=== PATIENT | male | born 1980 | race Hispanic/Latino ===

== ENCOUNTER 2017-08-19 07:47 | Inpatient (IN) | payer BC ==
[~2017-08-19] VITALS: Ht 177.8 cm; Wt 88.0 kg
[2017-08-19] MEDS ORDERED: ONDANSETRON HCL INJ 2 MG/ML VIAL IV STA (08:07)
[2017-08-19] MEDS ORDERED: LIDOCAINE VISC 2% SOLN 15 ML UDC PO ONE (08:15)
[2017-08-19] MEDS ORDERED: MAGNESIUM/ALUMINUM/SIMETHICONE 30 ML UDC PO ONE (08:15)
[2017-08-19] MEDS ORDERED: SODIUM CHLORIDE 0.9% 1000ML 1,000 ML IV ONE (08:15)
[2017-08-19 08:26] LABS: BASOPHILS % 0.1 % (0.0-1.0); HEMATOCRIT 43.7 % (38.2-49.6); LYMPHOCYTES # (AUTO) 1.8 (1.0-3.2); LYMPHOCYTES % 8.6 % (18.0-39.1); MEAN CORPUSCULAR HEMOGLOBIN 28.2 pg (28-32); MEAN CORPUSCULAR HGB CONC 34.3 g/dL (31-35); MEAN CORPUSCULAR VOLUME 82.1 fL (81-99); MONOCYTES # (AUTO) 0.7 (0.2-0.8); MONOCYTES % 3.4 % (4.4-11.3); NEUTROPHILS # (AUTO) 18.4 (2.1-6.9); NEUTROPHILS % 87.5 % (38.7-80.0); PLATELET COUNT 234 x10e3/uL (140-360); RED BLOOD COUNT 5.32 x10e6/uL (4.3-5.7); RED CELL DISTRIBUTION WIDTH 14.4 % (11.7-14.4)
[2017-08-19 08:48] LABS: ALANINE AMINOTRANSFERASE 119 IU/L (0-55); ALBUMIN 4.4 g/dL (3.5-5.0); ALKALINE PHOSPHATASE 108 IU/L (40-150); ANION GAP 18.6 mmol/L (8-16); BLOOD UREA NITROGEN 17 mg/dL (7-26); BUN/CREATININE RATIO 16 (6-25); CALCIUM 9.9 mg/dL (8.4-10.2); CARBON DIOXIDE 20 mmol/L (22-29); CHLORIDE 102 mmol/L (98-107); CREATININE, SERUM 1.09 mg/dL (0.72-1.25); EST GLOMERULAR FILTRATION RATE > 60 ML/MIN (60-); GLUCOSE 148 mg/dL (74-118); LIPASE 624 U/L (8-78); POTASSIUM 3.6 mmol/L (3.5-5.1); SODIUM 137 mmol/L (136-145)
--- NOTE | 2017-08-19 09:44 | Diagnostic Imaging Report ---
PROCEDURE:LIMITED ABDOMINAL ULTRASOUND COMPARISON:None. INDICATIONS:RUQ Pain FINDINGS: Liver: 14.9 cm. Normal hepatic parenchymal echogenicity. No focal mass. Main portal vein: 1.1 cm. Hepatopedal flow. Gallbladder: Multiple gallstones are present. Gallbladder wall thickening. No pericholecystic fluid. Common Bile Duct: 9.0 mm. No echogenic filling defect. Sonographic Nick's sign: Negative. Right kidney: 10.3 cm. No solid or cystic mass, echogenic calculi, or hydronephrosis. Normal parenchymal echogenicity. The pancreas, inferior vena cava, and aorta were insufficiently visualized for comment secondary to overlying bowel gas. Ascites: None. CONCLUSION: 1. Cholelithiasis with gallbladder wall thickening and negative sonographic Nick's sign. The findings are equivocal for acute cholecystitis. 2. Prominent common bile duct, without sonographic evidence of choledocholithiasis. Correlate with laboratory values for the need of MRCP. Dictated by: Neftali Krueger M.D. on 08/19/2017 at 9:52 Electronically approved by: Neftali Krueger M.D. on 08/19/2017 at 9:52
[2017-08-19] MEDS ORDERED: PIPER-TAZ 3.375 GM 50 ML IV ONE (10:00)
[2017-08-19] MEDS: MORPHINE SULFATE 2 MG/ML SYR IV PRN ×3 (12:27→23:54)
[2017-08-19] MEDS: ONDANSETRON HCL INJ 2 MG/ML VIAL IV PRN ×3 (12:27→23:54)
[2017-08-19] MEDS: SODIUM CHLORIDE 0.9% 1000ML 1,000 ML IV SCH ×2 (12:30→20:00)
[2017-08-19] MEDS ORDERED: PIPER-TAZ 3.375 GM/50 ML BAG IV SCH (14:00)
--- NOTE | 2017-08-19 15:37 | Consultation ---
DATE OF CONSULTATION: August 19, 2017 This 37-year-old presented to the hospital because of 2 to 3 month history of abdominal pain, which is worse after meals. Mainly it is in the epigastric and right upper quadrant area along with some nausea. The pain seems to be increasing in intensity over the last 2 weeks or so, then he had some vomiting. His workup revealed that he has white count of 20,000 along with elevated liver function tests. AST was 44, ALT 199. He was found to have pancreatitis with lipase of 624. His ultrasound shows evidence of gallstones with bile duct of 9 mm. His other medical problems are grossly unremarkable. ALLERGIES: NONE. SOCIAL HISTORY: He drinks alcohol occasionally. FAMILY HISTORY: Noncontributory. REVIEW OF SYSTEMS: Denies any chest pain or shortness of breath. Denies any dysphagia or odynophagia. Denies any dysuria or hematuria or any kind of syncopal episode. PHYSICAL EXAMINATION GENERAL: Awake, alert, appears to be stable, not in acute distress at this point. VITAL SIGNS: Afebrile currently. HEAD, EYES, EARS, NOSE AND THROAT: Normocephalic and atraumatic. Sclerae are anicteric. NECK: Supple. CARDIAC: Heart sounds are regular. LUNGS: Clear. ABDOMEN: Soft. There is some tenderness in the epigastric and right upper quadrant area. There is no rebound or mass. EXTREMITIES: No clubbing. LABORATORY VALUES: AST 44, ALT 119, amylase 585, lipase 624. WBC 20.9. Hemoglobin is normal. Ultrasound shows gallstones with bile duct of 9 mm. IMPRESSION: Gallstone pancreatitis. Patient has elevated liver function tests and also dilated bile duct. Possibility of common bile duct stones. RECOMMENDATIONS: To keep n.p.o. as well as IV hydration and pain control. Follow labs and clinically. I will obtain an MRCP. Depending on the MRCP results, the patient may need to have an ERCP. He will eventually need to have a cholecystectomy after pancreatitis is resolved. This has been discussed with him as well as his in length and in detail. Job#: [id number] cc:MD CRUZ VARELA MD
--- NOTE | 2017-08-19 16:40 | Diagnostic Imaging Report ---
EXAM: MRI MRCP [facility] DATE: 08/19/2017 2:43 PM INDICATION: Dilated common bile duct seen on ultrasound. COMPARISON: Abdominal ultrasound performed on the same date. TECHNIQUE: Multi planar, multi sequential MRCP images were obtained without and with administration of 18 cc of MultiHance. FINDINGS: Multiple gallstones, the largest measuring 2.4 cm in the gallbladder neck. The common bile duct is distended up to 1.3 cm. There are multiple subcentimeter filling defects within distal common bile duct. Within the limitations of the exam, the liver, spleen and adrenal glands are unremarkable. Bowel loops are unremarkable. No evidence of bowel obstruction. Normal appendix. Small amount of retroperitoneal fluid, surrounding the pancreas. No upper abdominal free fluid or lymphadenopathy. The soft tissues and bones are unremarkable. IMPRESSION: Mild retroperitoneal/peripancreatic edema, suspicious for pancreatitis. Please correlate with lab values. Cholelithiasis without evidence of cholecystitis. Dilated common bile duct with distal common bile duct subcentimeter calculi (choledocholithiasis). Signed by: Dr. Tim Barth MD on 08/19/2017 4:36 PM
[2017-08-19] MEDS: PIPER-TAZ 3.375 GM 50 ML IV SCH (18:00)
--- NOTE | 2017-08-19 20:51 | Consultation ---
DATE OF CONSULTATION: August 19, 2017 REASON FOR CONSULTATION: Gallstone pancreatitis. The patient is a 37-year-old male with several week history of on and off upper abdominal pain that got worse which is the reason why he came to the hospital. While in the emergency room, the patient had a workup that revealed gallstones by ultrasound. He had some mild elevation of transaminases with some mild elevation of the lipase and amylase. This prompted ERCP which revealed choledocholithiasis. The common bile duct was 9 mm. PAST MEDICAL HISTORY: Unremarkable. No previous surgeries. PHYSICAL EXAMINATION GENERAL: A 37-year-old male who complains of abdominal pain. He is in no acute distress. HEENT: Unremarkable. LUNGS: Clear. HEART: Regular rhythm. ABDOMEN: Diffusely tender. The labs and x-rays as previously stated. ASSESSMENT: Gallstone pancreatitis, choledocholithiasis. PLAN: Proceed with ERCP as per Dr. Culp once he has been evaluated and undergone ERCP then we will proceed with surgery. Job#: [id number]
[2017-08-20] MEDS: PIPER-TAZ 3.375 GM 50 ML IV SCH ×3 (03:00→16:55)
[2017-08-20] MEDS: ONDANSETRON HCL INJ 2 MG/ML VIAL IV PRN ×5 (04:00→21:06)
[2017-08-20] MEDS: MORPHINE SULFATE 2 MG/ML SYR IV PRN (04:00)
[2017-08-20] MEDS: SODIUM CHLORIDE 0.9% 1000ML 1,000 ML IV SCH ×3 (04:42→19:52)
[2017-08-20 06:45] LABS: HEMATOCRIT 40.2 % (38.2-49.6); HEMOGLOBIN 13.4 g/dL (14.0-18.0); MEAN CORPUSCULAR HEMOGLOBIN 28.2 pg (28-32); MEAN CORPUSCULAR HGB CONC 33.3 g/dL (31-35); MEAN CORPUSCULAR VOLUME 84.6 fL (81-99); PLATELET COUNT 202 x10e3/uL (140-360); RED BLOOD COUNT 4.75 x10e6/uL (4.3-5.7); RED CELL DISTRIBUTION WIDTH 14.6 % (11.7-14.4)
[2017-08-20] MEDS ORDERED: HYDROMORPHONE 1MG/1ML INJ IV PRN (07:15)
[2017-08-20 07:18] LABS: ALANINE AMINOTRANSFERASE 131 IU/L (0-55); ALBUMIN 3.7 g/dL (3.5-5.0); ALBUMIN/GLOBULIN RATIO 0.9 (0.8-2.0); ALKALINE PHOSPHATASE 92 IU/L (40-150); ANION GAP 15.7 mmol/L (8-16); BLOOD UREA NITROGEN 14 mg/dL (7-26); BUN/CREATININE RATIO 15 (6-25); CALCIUM 9.3 mg/dL (8.4-10.2); CARBON DIOXIDE 22 mmol/L (22-29); CHLORIDE 106 mmol/L (98-107); CREATININE, SERUM 0.91 mg/dL (0.72-1.25); EST GLOMERULAR FILTRATION RATE > 60 ML/MIN (60-); GLUCOSE 113 mg/dL (74-118); LIPASE 714 U/L (8-78); POTASSIUM 3.7 mmol/L (3.5-5.1); SODIUM 140 mmol/L (136-145)
[2017-08-20] MEDS: HYDROMORPHONE 2MG/ML INJ IV PRN ×4 (07:24→20:59)
[2017-08-20 08:19] LABS: LYMPHOCYTES % (MANUAL) 13 % (19-48); MONOCYTES % (MANUAL) 5 % (3.4-9.0); NEUTROPHILS % (MANUAL) 80 % (40-74)
[2017-08-20 08:20] LABS: ANISOCYTOSIS SLIGHT; PLATELET ESTIMATE ADEQUATE; PLATELET MORPHOLOGY COMMENT FEW LARGE; RBC MORPHOLOGY COMMENT NORMAL
--- NOTE | 2017-08-20 10:44 | Progress Note ---
DATE: August 20, 2017 Mr. Hernandez is a 37-year-old man with no prior medical history, who started 2 or 3 months ago having epigastric and right upper quadrant pain on and off. The pain got worse, and he decided to come to the emergency room. He was found to have elevated lipase and gallstones with acute cholecystitis and choledocholithiasis. PHYSICAL EXAMINATION GENERAL: Today, he is awake and alert. He is still in pain. VITALS: Temperature was like 99. HEART: Regular rate. LUNGS: Clear to auscultation. ABDOMEN: Tender. LABS: On the blood work, potassium is 3.7, creatinine 0.91, glucose 113, white count 21.8, hematocrit 40.2, lipase 714. ASSESSMENT AND PLAN 1. Acute cholecystitis. 2. Choledocholithiasis. 3. Acute pancreatitis. 4. Leukocytosis. The plan at the present time is to continue IV antibiotics. Continue to monitor white count. Continue to monitor lipase. The patient is n.p.o. He was seen by GI. He is going to go for ERCP. After the ERCP, he will have a cholecystectomy. All this was discussed with the patient and family at bedside and with Dr. Reese. All questions were answered to their satisfaction. Job#: [id number]
--- NOTE | 2017-08-20 11:07 | Progress Note ---
DATE: The patient is afebrile. Vital signs are stable. The patient is seen in the emergency room, where he has been all night. He is still awaiting a hospital bed. He is awake and alert. Still complains of abdominal pain but feels somewhat better today. No vomiting. Physical examination reveals a nondistended abdomen with diffuse tenderness, no rebound. Laboratories today reveal an increase in the bilirubin to 4.6 from 0.8. Lipase is 714. White count is 21,000. Normal platelet count. ASSESSMENT 1. Gallstones pancreatitis. 2. Choledocholithiasis. PLAN: Continue intravenous antibiotics and hydration. Preoperative ERCP as per Dr. Culp. Will follow up the patient. Job#: [id number]
[2017-08-20 15:10] VITALS: BP 137/62
[2017-08-20 15:14] VITALS: BP 137/62
[2017-08-20 18:13] VITALS: BP 144/77
[2017-08-20 23:51] VITALS: BP 148/82
[2017-08-21] MEDS: HYDROMORPHONE 2MG/ML INJ IV PRN ×5 (01:00→23:04)
[2017-08-21] MEDS: ONDANSETRON HCL INJ 2 MG/ML VIAL IV PRN ×4 (01:00→23:05)
[2017-08-21] MEDS: PIPER-TAZ 3.375 GM 50 ML IV SCH ×3 (01:44→18:15)
[2017-08-21] MEDS: SODIUM CHLORIDE 0.9% 1000ML 1,000 ML IV SCH ×3 (01:44→18:15)
[2017-08-21 04:00] VITALS: BP 155/83
[2017-08-21 05:19] LABS: BASOPHILS % 0.2 % (0.0-1.0); EOSINOPHILS # (AUTO) 0.1 (0.0-0.4); EOSINOPHILS % 0.2 % (0.0-6.0); HEMATOCRIT 37.4 % (38.2-49.6); HEMOGLOBIN 12.5 g/dL (14.0-18.0); LYMPHOCYTES % 7.7 % (18.0-39.1); MEAN CORPUSCULAR HEMOGLOBIN 28.2 pg (28-32); MEAN CORPUSCULAR HGB CONC 33.4 g/dL (31-35); MEAN CORPUSCULAR VOLUME 84.4 fL (81-99); MONOCYTES # (AUTO) 1.6 (0.2-0.8); MONOCYTES % 6.2 % (4.4-11.3); NEUTROPHILS # (AUTO) 22.4 (2.1-6.9); NEUTROPHILS % 85.1 % (38.7-80.0); PLATELET COUNT 190 x10e3/uL (140-360); RED BLOOD COUNT 4.43 x10e6/uL (4.3-5.7); RED CELL DISTRIBUTION WIDTH 14.7 % (11.7-14.4)
[2017-08-21 05:38] LABS: ALANINE AMINOTRANSFERASE 85 IU/L (0-55); ALBUMIN 3.5 g/dL (3.5-5.0); ALBUMIN/GLOBULIN RATIO 0.9 (0.8-2.0); ALKALINE PHOSPHATASE 85 IU/L (40-150); AMYLASE 103 U/L (25-125); ANION GAP 13.5 mmol/L (8-16); BLOOD UREA NITROGEN 12 mg/dL (7-26); BUN/CREATININE RATIO 15 (6-25); CALCIUM 9.2 mg/dL (8.4-10.2); CARBON DIOXIDE 23 mmol/L (22-29); CHLORIDE 106 mmol/L (98-107); CREATININE, SERUM 0.82 mg/dL (0.72-1.25); EST GLOMERULAR FILTRATION RATE > 60 ML/MIN (60-); GLUCOSE 103 mg/dL (74-118); LIPASE 57 U/L (8-78); POTASSIUM 3.5 mmol/L (3.5-5.1); SODIUM 139 mmol/L (136-145)
[2017-08-21 06:02] VITALS: BP 155/83
[2017-08-21 07:18] LABS: ANISOCYTOSIS SLIGHT; EOSINOPHILS % (MANUAL) 1 % (0-7); LYMPHOCYTES % (MANUAL) 6 % (19-48); MONOCYTES % (MANUAL) 3 % (3.4-9.0); NEUTROPHILS % (MANUAL) 90 % (40-74); RBC MORPHOLOGY COMMENT NORMAL
[2017-08-21 07:19] LABS: PLATELET ESTIMATE ADEQUATE; PLATELET MORPHOLOGY COMMENT FEW LARGE
--- NOTE | 2017-08-21 09:54 | Progress Note ---
DATE: August 21, 2017 Mr. Hernandez is a 37 year old who denies any prior medical history. Started like 2-3 months ago with right upper quadrant pain on and off after eating. The pain was more frequent and worse. He decided to come to the emergency room. He was found to have gallstones, as well as cholelithiasis and elevated lipase. He was seen by inventory associate and surgeon. The plan is he is going to go for ERCP today. PHYSICAL EXAMINATION GENERAL: He is awake and alert. He is still in pain. VITALS: Temperature is 98.7, blood pressure 155/83. HEART: Regular rate. LUNGS: Clear to auscultation. ABDOMEN: Soft but tender. BLOOD WORK: Potassium is 3.5, creatinine 0.82, glucose 103. White count is 26.3, hemoglobin 12.5. MRCP shows a suspicion of pancreatitis, cholelithiasis and choledocholithiasis. PLAN: At the present time, like I said is to continue IV antibiotics. He is going to go for ERCP. After that, he is going to go for cholecystectomy. Continue to monitor white count, lipase levels. All of this was discussed with the patient. All questions were answered to satisfaction. DIAGNOSES 1. Acute pancreatitis. 2. Cholecystitis. 3. Choledocholithiasis. 4. Leukocytosis. Job#: [id number] NOE
[2017-08-21] MEDS ORDERED: IOPAMIDOL 610MG/1ML 300 MG/ML VIAL IV ONE (11:07)
--- NOTE | 2017-08-21 11:47 | Progress Note ---
DATE: August 21, 2017 The patient is afebrile with stable vital signs. He feels better today. His abdomen is soft and nondistended. Liver chemistries are now normal, so are the amylase and lipase. The patient is scheduled for an ERCP today, and we will proceed with a cholecystectomy tomorrow if cleared by GI. Job#: [id number]
[2017-08-21] MEDS ORDERED: ONDANSETRON HCL INJ 2 MG/ML VIAL ONE ×2 (13:48→16:58)
[2017-08-21] MEDS ORDERED: MIDAZOLAM HCL 2 MG/2 ML VIAL ONE (14:23)
[2017-08-21] MEDS ORDERED: FENTANYL CITRATE/PF 100MCG/2 ML INJ ONE ×2 (14:23→14:42)
[2017-08-21] MEDS ORDERED: METOCLOPRAMIDE HCL 10 MG/2ML VIAL ONE (14:50)
[2017-08-21] MEDS ORDERED: LIDOCAINE HCL 2% LOCAL INJ 5 ML SDV VIAL INJ ONE ×2 (16:58→17:53)
[2017-08-21] MEDS ORDERED: ROCURONIUM BROMIDE 10 MG/ML 5ML VIAL ONE (16:58)
[2017-08-21] MEDS ORDERED: SEVOFLURANE INHAL SOLN 250 ML PEN BTL ONE (16:58)
[2017-08-21] MEDS ORDERED: DEXAMETHASONE SOD PHOS INJ 4 MG/ML VIAL ONE (16:58)
[2017-08-21] MEDS ORDERED: PROPOFOL IV EMULSION 10 MG/ML 20 ML VIAL ONE ×2 (16:58→17:53)
[2017-08-21 17:57] VITALS: BP 167/85
[2017-08-21 20:00] VITALS: BP 145/76
[2017-08-21 21:00] VITALS: BP 145/76
[2017-08-22] VITALS: BP 136/77
[2017-08-22] MEDS: PIPER-TAZ 3.375 GM 50 ML IV SCH ×3 (02:27→16:57)
[2017-08-22] MEDS: SODIUM CHLORIDE 0.9% 1000ML 1,000 ML IV SCH ×4 (02:35→22:35)
[2017-08-22] MEDS: ONDANSETRON HCL INJ 2 MG/ML VIAL IV PRN ×2 (03:06→21:47)
[2017-08-22] MEDS: HYDROMORPHONE 2MG/ML INJ IV PRN ×3 (03:06→21:47)
[2017-08-22 04:00] VITALS: BP 131/78
--- NOTE | 2017-08-22 07:21 | Diagnostic Imaging Report ---
PROCEDURE:ERCP TO BE READ INDICATION:Choledocholithiasis COMPARISON:None. TECHNIQUE:21 fluoroscopically captured images from an ERCP are submitted for interpretation. Fluoroscopy time: 1 min. Cumulative Air kerma: 17.13 mGy FINDINGS: Roping Machine Tender radiograph demonstrates a large stone in the expected region of the gallbladder antrum. Images demonstrate retrograde cannulation of the common bile duct. The common duct, proper hepatic duct and intrahepatic biliary tree are mildly dilated. There is partial opacification of the cystic duct, without opacification of the gallbladder. The filling defect is noted at the distal aspect of the common bile duct in keeping with choledocholithiasis. Multiple balloon sweeps were performed, with resolution of the above-noted filling defect. CONCLUSION: Initial choledocholithiasis was resolved with multiple balloon sweeps. No evidence of residual biliary tree stone or other acute abnormality. There is partial opacification of the cystic duct suggesting patency. Cholelithiasis noted. Dictated by: Parag Alexis M.D. on 08/22/2017 at 7:29 Electronically approved by: Parag Alexis M.D. on 08/22/2017 at 7:29
[2017-08-22] MEDS ORDERED: BUPIVACAINE 0.25% 30ML SDV INJ ONE (08:57)
[2017-08-22] MEDS ORDERED: PIPER-TAZ 3.375 GM 50 ML ONE (09:49)
[2017-08-22] MEDS ORDERED: FENTANYL CITRATE/PF 100MCG/2 ML INJ ONE ×2 (11:20→18:31)
[2017-08-22] MEDS ORDERED: ONDANSETRON HCL INJ 2 MG/ML VIAL IV PRN (11:30)
[2017-08-22] MEDS: HYDROCODONE/APAP 7.5MG-325MG 1 EA TAB PO PRN (15:09)
[2017-08-22] MEDS ORDERED: MIDAZOLAM HCL 2 MG/2 ML VIAL ONE (18:31)
[2017-08-22 20:00] VITALS: BP 152/79
[2017-08-23] VITALS (8 sets, daily range): BP systolic 115–147; BP diastolic 56–75
[2017-08-23] MEDS: PIPER-TAZ 3.375 GM 50 ML IV SCH ×3 (01:24→18:15)
[2017-08-23] MEDS: HYDROCODONE/APAP 7.5MG-325MG 1 EA TAB PO PRN ×5 (01:25→23:16)
[2017-08-23] MEDS: ONDANSETRON HCL INJ 2 MG/ML VIAL IV PRN ×3 (02:18→14:37)
[2017-08-23] MEDS: HYDROMORPHONE 2MG/ML INJ IV PRN ×4 (02:18→19:58)
[2017-08-23] MEDS: SODIUM CHLORIDE 0.9% 1000ML 1,000 ML IV SCH ×3 (02:35→15:03)
[2017-08-23 06:22] LABS: BASOPHILS # (AUTO) 0.1 (0.0-0.1); BASOPHILS % 0.3 % (0.0-1.0); EOSINOPHILS # (AUTO) 0.2 (0.0-0.4); EOSINOPHILS % 1.1 % (0.0-6.0); HEMATOCRIT 35.4 % (38.2-49.6); HEMOGLOBIN 11.6 g/dL (14.0-18.0); LYMPHOCYTES # (AUTO) 3.4 (1.0-3.2); LYMPHOCYTES % 16.3 % (18.0-39.1); MEAN CORPUSCULAR HEMOGLOBIN 27.9 pg (28-32); MEAN CORPUSCULAR HGB CONC 32.8 g/dL (31-35); MEAN CORPUSCULAR VOLUME 85.1 fL (81-99); MONOCYTES # (AUTO) 1.6 (0.2-0.8); MONOCYTES % 7.7 % (4.4-11.3); NEUTROPHILS # (AUTO) 15.4 (2.1-6.9); NEUTROPHILS % 74.2 % (38.7-80.0); PLATELET COUNT 227 x10e3/uL (140-360); RED BLOOD COUNT 4.16 x10e6/uL (4.3-5.7); RED CELL DISTRIBUTION WIDTH 14.4 % (11.7-14.4)
[2017-08-23 06:46] LABS: ALANINE AMINOTRANSFERASE 81 IU/L (0-55); ALBUMIN/GLOBULIN RATIO 0.7 (0.8-2.0); ALKALINE PHOSPHATASE 82 IU/L (40-150); AMYLASE 65 U/L (25-125); ANION GAP 14.6 mmol/L (8-16); BLOOD UREA NITROGEN 9 mg/dL (7-26); BUN/CREATININE RATIO 11 (6-25); CALCIUM 9.3 mg/dL (8.4-10.2); CARBON DIOXIDE 24 mmol/L (22-29); CHLORIDE 104 mmol/L (98-107); CREATININE, SERUM 0.81 mg/dL (0.72-1.25); EST GLOMERULAR FILTRATION RATE > 60 ML/MIN (60-); GLUCOSE 100 mg/dL (74-118); POTASSIUM 3.6 mmol/L (3.5-5.1); SODIUM 139 mmol/L (136-145)
[2017-08-24] VITALS: BP 118/66
[2017-08-24] MEDS: PIPER-TAZ 3.375 GM 50 ML IV SCH ×2 (02:08→09:04)
[2017-08-24] MEDS: HYDROMORPHONE 2MG/ML INJ IV PRN ×2 (02:21→10:06)
[2017-08-24] MEDS: SODIUM CHLORIDE 0.9% 1000ML 1,000 ML IV SCH ×3 (02:35→10:35)
[2017-08-24 04:00] VITALS: BP 139/76
[2017-08-24 06:27] LABS: BASOPHILS # (AUTO) 0.1 (0.0-0.1); BASOPHILS % 0.3 % (0.0-1.0); EOSINOPHILS # (AUTO) 0.4 (0.0-0.4); EOSINOPHILS % 2.4 % (0.0-6.0); HEMATOCRIT 33.3 % (38.2-49.6); HEMOGLOBIN 11.1 g/dL (14.0-18.0); LYMPHOCYTES # (AUTO) 2.5 (1.0-3.2); LYMPHOCYTES % 13.8 % (18.0-39.1); MEAN CORPUSCULAR HEMOGLOBIN 28.1 pg (28-32); MEAN CORPUSCULAR HGB CONC 33.3 g/dL (31-35); MEAN CORPUSCULAR VOLUME 84.3 fL (81-99); MONOCYTES # (AUTO) 1.6 (0.2-0.8); MONOCYTES % 8.8 % (4.4-11.3); NEUTROPHILS # (AUTO) 13.2 (2.1-6.9); NEUTROPHILS % 74.3 % (38.7-80.0); PLATELET COUNT 239 x10e3/uL (140-360); RED BLOOD COUNT 3.95 x10e6/uL (4.3-5.7); RED CELL DISTRIBUTION WIDTH 14.2 % (11.7-14.4)
[2017-08-24 06:54] LABS: ALANINE AMINOTRANSFERASE 73 IU/L (0-55); ALBUMIN 2.6 g/dL (3.5-5.0); ALBUMIN/GLOBULIN RATIO 0.7 (0.8-2.0); ALKALINE PHOSPHATASE 77 IU/L (40-150); ANION GAP 12.3 mmol/L (8-16); BLOOD UREA NITROGEN 7 mg/dL (7-26); BUN/CREATININE RATIO 9 (6-25); CALCIUM 8.6 mg/dL (8.4-10.2); CARBON DIOXIDE 26 mmol/L (22-29); CHLORIDE 104 mmol/L (98-107); CREATININE, SERUM 0.82 mg/dL (0.72-1.25); EST GLOMERULAR FILTRATION RATE > 60 ML/MIN (60-); GLUCOSE 88 mg/dL (74-118); POTASSIUM 3.3 mmol/L (3.5-5.1); SODIUM 139 mmol/L (136-145)
[2017-08-24 08:47] VITALS: BP 144/75
[2017-08-24] MEDS: HYDROCODONE/APAP 7.5MG-325MG 1 EA TAB PO PRN ×2 (09:04→13:39)
[2017-08-24 09:21] VITALS: BP 144/75
[2017-08-24 10:38] LABS: EOSINOPHILS % (MANUAL) 1 % (0-7); LYMPHOCYTES % (MANUAL) 20 % (19-48); MONOCYTES % (MANUAL) 4 % (3.4-9.0); NEUTROPHILS % (MANUAL) 75 % (40-74)
[2017-08-24 10:39] LABS: HYPOCHROMASIA SLIGHT; PLATELET ESTIMATE ADEQUATE; PLATELET MORPHOLOGY COMMENT NORMAL; RBC MORPHOLOGY COMMENT NORMAL
[2017-08-24] MEDS ORDERED: POTASSIUM CHLORIDE 20 MEQ TAB CR PO ONE (11:00)
[2017-08-24 12:00] VITALS: BP 132/76
[2017-08-24] MEDS ORDERED: TYLENOL # 31 EA PO (12:29)
== END 2017-08-24 13:54 | disposition home or self-care (01) | DRG 418 ==
LOC: ER 07:47 → UNDOADMIN 10:41 → ERHOLD 10:41 → ENDO 08-21 12:08 → MED/SURG 08-21 17:20
PROVIDERS: ADMIT Internal Medicine; ATTEND Internal Medicine
PROC: 0FC98ZZ Extirpation of Matter from Common Bile Duct, Via Natural or Artificial Opening Endoscopic (ICD-10-PCS; 2017-08-21)
PROC: BF101ZZ Fluoroscopy of Bile Ducts using Low Osmolar Contrast (ICD-10-PCS; 2017-08-21)
PROC: 0FT44ZZ Resection of Gallbladder, Percutaneous Endoscopic Approach (ICD-10-PCS; principal; 2017-08-22 09:30)
DX: K85.10 Biliary acute pancreatitis without necrosis or infection (principal); K80.62 Calculus of gallbladder and bile duct with acute cholecystitis without obstruction; R10.13 Epigastric pain
CPT/HCPCS: 36415; 74183; 74328; 76705; 80053; 82150; 83690; 85007; 85025; 85027; 88304; 96361; 99284; C1766; J1100; J2001; J2250; J2270; J2405; J2543; J2765; J7030